=== PATIENT | female | born 1985 | race Caucasian/White ===

== ENCOUNTER 2020-05-26 05:29 | Observation (INO) | payer MEDICAID ==
[2020-05-19 15:29] LABS: BASOPHILS # (AUTO) 0.1 X10'3 (0-0.2); BASOPHILS % (AUTO) 0.9 % (0-1); EOSINOPHILS # (AUTO) 0.1 X10'3 (0-0.9); EOSINOPHILS % (AUTO) 0.8 % (0-6); LYMPHOCYTES # (AUTO) 1.2 X10'3 (1.1-4.8); LYMPHOCYTES % (AUTO) 19.5 % (21-51); MEAN CORPUSCULAR HEMOGLOBIN 29.1 PG (27.0-31.0); MEAN CORPUSCULAR HGB CONC 32.9 g/dL (33.0-36.5); MEAN CORPUSCULAR VOLUME 88.5 FL (78-98); MONOCYTES # (AUTO) 0.3 X10'3 (0-0.9); MONOCYTES % (AUTO) 5.7 % (2-12); NEUTROPHILS # (AUTO) 4.4 X10'3 (1.8-7.7); NEUTROPHILS % (AUTO) 73.1 % (42-75); PRE OP HEMATOCRIT 40.7 % (35.0-45.0); PRE OP HEMOGLOBIN 13.4 g/dL (12.0-16.0); PRE OP PLATELET COUNT 199 X10'3 (140-440); RED CELL DISTRIBUTION WIDTH 13.6 % (11.5-14.5)
[2020-05-19 15:35] LABS: ALBUMIN 3.8 G/DL (3.4-5.0); ALKALINE PHOSPHATASE 70 IU/L (46-116); BLOOD UREA NITROGEN 11 MG/DL (7-18); BUN/CREATININE RATIO 15.7 (6.6-38.0); CALCIUM 9.1 MG/DL (8.5-10.1); CHLORIDE 107 MMOL/L (99-107); PRE OP ALT 22 U/L (30-65); PRE OP ANION GAP 8 (8-16); PRE OP AST 14 U/L (10-37); PRE OP BILIRUB, TOTAL 0.3 MG/DL (0.0-1.0); PRE OP GLUCOSE 85 MG/DL (70-104); PRE OP POTASSIUM 3.7 MMOL/L (3.4-5.1); PRE OP SODIUM 142 MMOL/L (135-145); TOTAL PROTEIN 7.5 G/DL (6.4-8.2); eGFR > 90 ML/MIN
[2020-05-19 15:40] LABS: HCG SERUM QL NEGATIVE
[~2020-05-26] VITALS: Ht 172.7 cm; Wt 68.5 kg
[2020-05-26] VITALS (21 sets, daily range): BP systolic 101–116; BP diastolic 49–70
[~2020-05-26 05:29] MED LIST: NO HOME MEDS
[2020-05-26] MEDS ORDERED: ceFOXitin 2GM-NS 100mL ADDvant 100 ML IV ONE (05:30)
[2020-05-26] MEDS ORDERED: famotidine 20mg tablet PO ONE (05:30)
[2020-05-26] MEDS: ringers solution, lacted 1,000 ML IV SCH ×6 (06:18→18:27)
[2020-05-26] MEDS ORDERED: BUPIVAcaine/PF 2.5 mg/ml (0.25%) 30ml vial ONE (06:45)
[2020-05-26] MEDS ORDERED: LIDOcaine 1% w/epiNEPHrine 1:200,000 30ml vial ONE (06:45)
[2020-05-26] MEDS ORDERED: propofol inj 20 ML IV ONE (07:21)
[2020-05-26] MEDS ORDERED: midazolam 2 mg/2 ml injection ONE (07:21)
[2020-05-26] MEDS ORDERED: rocuronium 10mg/ml inj IV ONE (07:21)
[2020-05-26] MEDS ORDERED: fentaNYL /PF 50mcg/ml 5ml ampule ONE (07:21)
[2020-05-26] MEDS ORDERED: ringers solution, lacted 1,000 ML IV SCH (07:26)
[2020-05-26] MEDS ORDERED: meperidine/PF 25mg/ml syringe IV PRN ×2 (07:30)
[2020-05-26] MEDS ORDERED: morphine 4 MG/ML inj SYRINge IV PRN (07:30)
[2020-05-26] MEDS ORDERED: ondansetron/PF 4mg/2ml inj IV PRN (07:30)
[2020-05-26] MEDS ORDERED: proCHLORperazine 10 MG/2 ml inj IV PRN ×2 (07:30→20:40)
[2020-05-26] MEDS ORDERED: sevoflurane 250ml liquid IH ONE (07:33)
[2020-05-26] MEDS ORDERED: dexamethasone sod phosphate 4mg/ml inj. ONE (09:19)
[2020-05-26] MEDS ORDERED: fluoroscein sod 10% (100mg/ml) 5ml vial ONE (09:19)
[2020-05-26] MEDS ORDERED: ondansetron/PF 4mg/2ml inj ONE (09:20)
[2020-05-26] MEDS ORDERED: acetaminophen 1,000mg/100ml IV 100 ML IV ONE (09:22)
[2020-05-26] MEDS ORDERED: neostigmine methylsulfate 1 MG/ML 10ml vial ONE (09:31)
[2020-05-26] MEDS ORDERED: glycopyrrolate 0.2mg/ml inj ONE (09:31)
[2020-05-26] MEDS ORDERED: magnesium hydroxide 30ml (MOM) UD suspension PO PRN (09:45)
[2020-05-26] MEDS ORDERED: oxyCODONE/APAP 5-325mg tablet PO PRN ×2 (09:45)
[2020-05-26] MEDS ORDERED: CADD PCA waste documentation MC PRN (09:45)
[2020-05-26] MEDS ORDERED: naloxone 0.4 mg/ml inj IV PRN (09:45)
[2020-05-26] MEDS ORDERED: mag hydrox/Alum hydrox/simeth 30ml oral suspension PO PRN (09:45)
[2020-05-26] MEDS ORDERED: temazepam 15mg capsule PO PRN (09:45)
[2020-05-26] MEDS ORDERED: diphenhydrAMINE 50 mg/ml inj IV PRN (09:45)
[2020-05-26] MEDS ORDERED: normal saline 500ML IV soln IV PRN (09:45)
--- NOTE | 2020-05-26 09:54 | NUR ---
Received from OR via SURGICAL BED , accompanied by Anesthesiologist JUAN DIEGO and report given by Anesthesiolgist. PATIENT WITH 20G PIV IN RIGHT UE RUNNING LR AT 100, NON VERBAL SCALE USED. NO PAIN. EDILBERTO PAD IN PLACE WITH 3 ABDOMINAL BANDAIDS PRESENT. NON DRAINAGE TO EITHER. VSS. SCDS DONNED. 10L MASK ON WITH 100% SATURATIONS. MARTIN CATHETER WITH CLEAR YELLOW URINE IN A[facility]. Addendum: 05/26/20 at 1009 by Jose M Gallego RN, RN Amended: Links added.
[2020-05-26] MEDS: meperidine/PF 25mg/ml syringe IV PRN ×3 (10:12→10:44)
[2020-05-26] MEDS: morphine 2 MG/ML inj. syringe IV PRN ×3 (10:23→10:44)
[2020-05-26] MEDS: HYDROmorphone/NS 1 mg/ml CADD 50 ML IV SCH ×7 (11:02→23:00)
--- NOTE | 2020-05-26 11:54 | NUR ---
ALL CRITERIA FOR DC TO THE FLOOR HAS BEEN ACHIEVED. 2 RAILS UP. BED LOW, CALL LIGHT PRESENT. GAVE REPORT TO RN . PAIN AT A TOLERABLE LEVEL AT THIS TIME. DRESSINGS CDI. CARE TURNED OVER TO BORIS CRAFT. VSGreg. Addendum: 05/26/20 at 1156 by Jose M Gallego RN, RN Amended: Links added.
[2020-05-26] MEDS: simethicone 80mg chew tab PO SCH ×2 (13:30→18:27)
[2020-05-26] MEDS: ondansetron/PF 4mg/2ml inj IV PRN (16:22)
--- NOTE | 2020-05-26 18:01 | NUR ---
Problems reprioritized. Patient report given, questions answered & plan of care reviewed with VENANCIO Pedersen.
--- NOTE | 2020-05-26 18:15 | NUR ---
Received report from primary care nurse Joanne CRAFT. Assumed patient care. Patient is awake and alert on 2LNC in no apparent distress. Dinner tray in front of her patient claiming, "I just dont feel like it." Call light and items of frequent use within reach. Will continue to monitor for changes.
[2020-05-26] MEDS: ketorolac trometh. 30mg/ml inj. IV PRN (18:34)
[2020-05-26] MEDS ORDERED: docusate sod 100mg capsule PO SCH (20:00)
[2020-05-26] MEDS: docusate sod 100mg capsule PO SCH (20:31)
[2020-05-26] MEDS ORDERED: proMETHazine 25mg rectal suppository RC PRN (20:40)
[2020-05-27] VITALS: BP 112/69
[2020-05-27] MEDS: ketorolac trometh. 30mg/ml inj. IV PRN ×2 (00:48→07:43)
[2020-05-27] MEDS: ondansetron/PF 4mg/2ml inj IV PRN (04:12)
[2020-05-27] MEDS: ringers solution, lacted 1,000 ML IV SCH (04:14)
[2020-05-27 05:27] LABS: BASOPHILS % (AUTO) 0.1 % (0-1); EOSINOPHILS % (AUTO) 0 % (0-6); HEMATOCRIT 32.2 % (35.0-45.0); HEMOGLOBIN 10.8 g/dl (12.0-16.0); LYMPHOCYTES % (AUTO) 8.1 % (21-51); MEAN CORPUSCULAR HEMOGLOBIN 29.3 PG (27.0-31.0); MEAN CORPUSCULAR HGB CONC 33.6 g/dL (33.0-36.5); MEAN CORPUSCULAR VOLUME 87.4 FL (78-98); MEAN PLATELET VOLUME 9.6 FL (7.4-10.4); MONOCYTES # (AUTO) 0.8 X10'3 (0-0.9); MONOCYTES % (AUTO) 6.7 % (2-12); NEUTROPHILS # (AUTO) 10.4 X10'3 (1.8-7.7); NEUTROPHILS % (AUTO) 85.1 % (42-75); PLATELET COUNT 160 X10'3 (140-440); RED BLOOD COUNT 3.68 X10'6 (4.20-5.60); RED CELL DISTRIBUTION WIDTH 13.2 % (11.5-14.5); WHITE BLOOD COUNT 12.2 X10'3 (4.5-11.0)
[2020-05-27 05:31] LABS: ALBUMIN 3.1 G/DL (3.4-5.0); ANION GAP 9 (8-16); BLOOD UREA NITROGEN 10 MG/DL (7-18); BUN/CREATININE RATIO 14.3 (6.6-38.0); CALCIUM 8.2 MG/DL (8.5-10.1); CHLORIDE 107 MMOL/L (99-107); GLUCOSE 97 MG/DL (70-104); POTASSIUM 3.6 MMOL/L (3.5-5.1); SODIUM 139 MMOL/L (135-145); TOTAL CARBON DIOXIDE 23.4 MMOL/L (24-32); eGFR > 90 ML/MIN
--- NOTE | 2020-05-27 06:10 | NUR ---
Patient in room [facility]. I have received report from Nuvia CRAFT and had the opportunity to ask questions and assume patient care.
--- NOTE | 2020-05-27 06:12 | NUR ---
Reported off to Michelle CRAFT. Patient is resting with relaxed and unlabored respirations on RA in no apparent distress. Call light and items of frequent use within reach.
[2020-05-27 07:00] VITALS: BP 96/49
--- NOTE | 2020-05-27 07:30 | NUR ---
Patient voided 350 ml yellow urine in the toilet
[2020-05-27] MEDS: simethicone 80mg chew tab PO SCH (07:42)
[2020-05-27] MEDS: docusate sod 100mg capsule PO SCH (07:42)
--- NOTE | 2020-05-27 10:08 | NUR ---
Discharge instructions given to patient, patient verbalized understanding of all instructions made. Peripheral IV catheter removed, tip intact. Instructed patient to ensure she has all her belongings with before leaving. Security called to let them know patient going home today and has valuable in safe. Patient stated her mom will be the one to pick her up
== END 2020-05-27 11:40 | disposition home or self-care (01) ==
LOC: PAS 05:29 → SUR 3N 09:43
PROVIDERS: ADMIT Obstetrics & Gynecology; ATTEND Obstetrics & Gynecology
DX: Z03.818 Encounter for observation for suspected exposure to other biological agents ruled out (principal); N92.0 Excessive and frequent menstruation with regular cycle; N80.0 Endometriosis of uterus; F41.9 Anxiety disorder, unspecified; N94.3 Premenstrual tension syndrome; G43.829 Menstrual migraine, not intractable, without status migrainosus; Z79.899 Other long term (current) drug therapy
CPT/HCPCS: 36415; 58552; 80048; 80053; 82948; 84703; 85025; 86885; 86900; 86901; 87081; 93005; 96365; 96366; 96375; 96376; C1758; G0378; J0131; J0694; J0780; J1100; J1885; J2175; J2250; J2270; J2405; J2704; J2710; J3010; J3490; J7120; U0003; A4355; A4618; A6250; A7000

== ENCOUNTER 2022-07-12 09:47 | Outpatient (CLI) | payer MEDICAID ==
[2022-07-12] VITALS (18 sets, daily range): BP systolic 100–130; BP diastolic 46–84
== END 2022-07-12 23:59 | disposition home or self-care (01) ==
LOC: CARD DIAG 09:47
PROVIDERS: ATTEND Internal Medicine Interventional Cardiology
DX: R07.2 Precordial pain (principal); R42 Dizziness and giddiness
CPT/HCPCS: 93660